=== PATIENT | female | born 1950 | race Two or more races ===

== ENCOUNTER → 2017-10-30 | Emergency (ER) | payer OTHER ==
[~2017-10-30] VITALS: Ht 154.9 cm; Wt 72.6 kg
[~2017-10-30] MED LIST: METFORMIN HCL500 MG; SIMVASTATIN40 MG; TOPROL XL50 M1
== END | disposition home or self-care (01) ==
LOC: ER 14:47
DX: N20.9 Urinary calculus, unspecified (principal); N39.0 Urinary tract infection, site not specified

== ENCOUNTER 2018-03-16 08:58 | Outpatient (CLI) | payer OTHER | END 2018-03-16 15:00 | disposition home or self-care (01) | LOC: TOM 08:58 | DX: R10.30 Lower abdominal pain, unspecified (principal) ==

== ENCOUNTER 2020-02-19 21:18 | Emergency (ER) | payer OTHER ==
[~2020-02-19] VITALS: Ht 157.5 cm; Wt 65.8 kg
== END 2020-02-19 23:34 | disposition home or self-care (01) ==
LOC: ER 21:18
DX: R51 Headache (principal); M25.512 Pain in left shoulder

== ENCOUNTER 2020-04-21 08:31 | Outpatient (CLI) | payer OTHER | END 2020-04-21 08:40 | disposition home or self-care (01) | LOC: NUCLEAR 08:31 | PROVIDERS: ATTEND Internal Medicine | DX: C44.90 Unspecified malignant neoplasm of skin, unspecified (principal); J98.8 Other specified respiratory disorders; R91.8 Other nonspecific abnormal finding of lung field | CPT/HCPCS: 78816; A9552 ==